=== PATIENT | male | born 1935 | race Caucasian/White ===

== ENCOUNTER 2016-10-23 13:52 | Emergency (ER) | payer MEDICARE ==
[2016-10-23] MEDS: 0.9 % SODIUM CHLORIDE 1000ML 1,000 ML IV PRN (14:18)
[2016-10-23] MEDS: ASPIRIN 81 MG CHEWABLE TABLET PO ONE (14:19)
--- NOTE | 2016-10-23 14:19 | Emergency Department Record ---
History of Present Illness - General Chief Complaint: Chest Pain Stated Complaint: CHEST PAIN Time Seen by Provider: 10/23/16 13:53 Source: Patient, RN notes reviewed Mode of Arrival: Wheelchair - History of Present Illness Initial Comments: patient felt a buzzing sensation in his chest while walking on the treadmil at the [facility] this AM. Lasted 60 minutes. Than when visiting his at the [facility] he got up and felt dizzy. 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 Onset/Timin -: Hour(s) Onset: During exertion Pain Location: Left chest Pain Radiation: None Severity: Mild Quality: Other Treatments Prior to Arrival: None - Related Data Home Medications Medication Instructions Recorded Confirmed Last Taken Terazosin HCl 2 mg PO DAILY 12/21/14 10/23/16 10/23/16 Levothyroxine Sodium [Synthroid] 50 mg PO DAILY #90 06/13/16 10/23/16 10/23/16 Duloxetine HCl [Cymbalta] 60 mg PO BID cap 10/02/16 10/23/16 10/23/16 Loratadine [Claritin] 10 mg PO DAILY cap 10/02/16 10/23/16 10/23/16 Aspirin [Adult Low Dose Aspirin EC] 81 mg PO DAILY 10/23/16 10/23/16 10/23/16 Cholecalciferol (Vitamin D3) 2,000 units PO DAILY 10/23/16 10/23/16 10/23/16 [Vitamin D3] Finasteride [Proscar] 5 mg PO DAILY 10/23/16 10/23/16 10/23/16 Meclizine HCl [Antivert] 25 mg PO BID 10/23/16 10/23/16 10/23/16 Allergies Allergy/AdvReac Type Severity Reaction Status Date / Time citric acid Allergy Severe HIVES Verified 10/23/16 13:54 ibuprofen [From Motrin] Allergy Severe HIVES Verified 10/23/16 13:54 naproxen sodium [From Aleve] Allergy Severe HIVES Verified 10/23/16 13:54 NSAIDS (Non-Steroidal Allergy Severe mouth sores Verified 10/23/16 13:54 Anti-Inflamma Travel Screening - Travel/Exposure Within Last 30 Days Have you traveled within the last 30 days?: No - Travel/Exposure Within Last Year Have you traveled outside the [place] in the last year?: No - Additonal Travel Details Have you been exposed to anyone with a communicable illness?: No - Travel Symptoms Symptom Screening: None Review of Systems Reviewed: No additional complaints except as noted below Constitutional: Reports: As per HPI. Denies: Chills, Fever, Malaise, Night sweats, Weakness, Weight change Eyes: Reports: As per HPI. Denies: Eye discharge, Eye pain, Photophobia, Vision change ENT: Reports: As per HPI. Denies: Congestion, Dental pain, Ear pain, Epistaxis , Hearing loss, Throat pain Respiratory: Reports: As per HPI. Denies: Cough, Dyspnea, Hemoptysis, Stridor, Wheezes Cardiovascular: Reports: As per HPI, Chest pain (vibrator sensation in his chest today while walking on the treadmil this am adn lasted 15 minutes ). Denies: Arrhythmia, Dyspnea on exertion, Edema, Murmurs, Orthopnea, Palpitations , Paroxysmal nocturnal dyspnea, Rheumatic Fever, Syncope Endocrine: Reports: As per HPI. Denies: Fatigue, Heat or cold intolerance, Polydipsia, Polyuria Gastrointestinal: Reports: As per HPI. Denies: Abdominal pain, Constipation, Diarrhea, Hematemesis, Hematochezia, Melena, Nausea, Vomiting Genitourinary: Reports: As per HPI. Denies: Dysuria, Frequency, Hematuria, Incontinence, Retention, Testicular pain, Testicular mass, Urgency Musculoskeletal: Reports: As per HPI. Denies: Arthralgia, Back pain, Gout, Joint swelling, Myalgia, Neck pain Skin: Reports: As per HPI. Denies: Bruising, Change in color, Change in hair/ nails, Lesions, Pruritus, Rash Neurological: Reports: As per HPI. Denies: Abnormal gait, Confusion, Headache, Numbness, Paresthesias, Seizure, Tingling, Tremors, Vertigo, Weakness Psychiatric: Reports: As per HPI. Denies: Anxiety, Auditory hallucinations, Depression, Homicidal thoughts, Suicidal thoughts, Visual hallucinations Hematological/Lymphatic: Reports: As per HPI. Denies: Anemia, Blood Clots, Easy bleeding, Easy bruising, Swollen glands Past Medical History - SOCIAL HISTORY Smoking Status: Former smoker Alcohol Use: Occassional Drug Use: None - RESPIRATORY Hx Respiratory Disorders: Yes Hx Pulmonary Embolism: Yes - CARDIOVASCULAR Hx Cardio Disorders: Yes Comment:: high cholesterol - NEURO Hx Neuro Disorders: Yes Hx Dizziness: Yes - GI Hx GI Disorders: No - Hx Genitourinary Disorders: Yes Hx Prostate Problems: Yes Comment:: BPH - ENDOCRINE Hx Endocrine Disorders: Yes Hx Thyroid Disease: Yes - MUSCULOSKELETAL Hx Musculoskeletal Disorders: No - PSYCH Hx Psych Problems: No - HEMATOLOGY/ONCOLOGY Hx Hematology/Oncology Disorders: No Family Medical History Any Significant Family History?: Yes Family Hx Comment (NOT TO BE USED IN PLACE OF ITEMS BELOW): Brother and 1 sister had brain tumor. Also 2 neices Hx Cancer: Brother/Sister Physical Exam - General General Appearance: Alert, Oriented x3, Cooperative, No acute distress - Head Head exam: Normal inspection - Eye Eye exam: Normal appearance, PERRL Pupils: Normal accommodation - ENT ENT exam: Normal exam, Mucous membranes moist, Normal external ear exam, Normal orophraynx, TM's normal bilaterally Ear exam: Normal external inspection. negative: External canal tenderness Nasal Exam: Normal inspection. negative: Discharge, Sinus tenderness Mouth exam: Normal external inspection, Tongue normal Teeth exam: Normal inspection. negative: Dental caries Throat exam: Normal inspection. negative: Tonsillar erythema, Tonsillar exudate - Neck Neck exam: Normal inspection, Full ROM. negative: Tenderness - Respiratory Respiratory exam: Normal lung sounds bilaterally. negative: Respiratory distress - Cardiovascular Cardiovascular Exam: Regular rate, Normal rhythm, Normal heart sounds - GI/Abdominal GI/Abdominal exam: Soft, Normal bowel sounds. negative: Tenderness - Rectal Rectal exam: Deferred - exam: Deferred - Extremities Extremities exam: Normal inspection, Full ROM, Normal capillary refill. negative: Tenderness - Back Back exam: Reports: Normal inspection, Full ROM. Denies: Muscle spasm, Rash noted, Tenderness - Neurological Neurological exam: Alert, Normal gait, Oriented X3, Reflexes normal - Psychiatric Psychiatric exam: Normal affect, Normal mood - Skin Skin exam: Dry, Intact, Normal color, Warm Course Vital Signs 10/23/16 14:05 Temperature 97.5 F L Pulse Rate 92 H Respiratory 18 Rate Blood Pressure 121/72 Pulse Ox [address] Meehan - Reevaluation(s) Reevaluation #1: Dr. Meehan here to evaluate patient. orthostatic hypotension from flomax. recommended stopping. follow up outpatient if second enzymes are neg. 10/23/16 16:08 Medical Decision Making - Data Complexity MDM Data: Labs Ordered and/or Reviewed, X-Ray Ordered and/or Reviewed (chest negative per JIMY), EKG Ordered and/or Reviewed (normal no acute changes) - Lab Data Result diagrams: 10/23/16 14:20 10/23/16 14:20 Disposition Clinical Impression: Orthostatic hypotension Chest pain Qualifiers: Chest pain type: unspecified Qualified Code(s): R07.9 - Chest pain, unspecified Disposition: Home, Self-Care Condition: (1) Good Instructions: Syncope (ED) Additional Instructions: stop flomax (.tamsulosin) drink more fluids follow up with Dr Harris in 5 days Forms: Patient Portal Access Time of Disposition: 18:15
[2016-10-23 14:26] LABS: BASO % 0.4 % (0-6); EOS % 1.2 % (0-6); GRAN % 79.9 % (47-80); HEMATOCRIT 39.6 % (42.0-52.0); HEMOGLOBIN 12.9 gm/dl (14.0-18.0); LYMPH % 13.1 % (16-45); MEAN CELL VOLUME 97.3 fl (81-97); MEAN CORPUSCULAR HGB CONC 32.6 g/dl (32-36); MEAN PLATELET VOLUME 9.7 fl (7.4-10.4); MONO % 5.4 % (0-9); PLATELET COUNT 198 K/uL (130-400); RED BLOOD COUNT 4.07 M/uL (4.40-5.70); RED CELL DISTRIBUTION WIDTH 14.4 % (11.5-14.5)
[2016-10-23 14:27] LABS: MEAN CORPUSCULAR HEMOGLOBIN 31.6 pg (27-33)
[2016-10-23 14:39] LABS: BLOOD UREA NITROGEN 19 mg/dL (9-20); CREATININE 0.8 mg/dL (0.66-1.25); EST GLOMERULAR FILTRATION RATE > 60 ml/min; GLUCOSE,RANDOM 156 mg/dL (70-110)
[2016-10-23 14:52] LABS: CKMB 1.1 ug/L (0-6)
[2016-10-23 14:56] LABS: TROPONIN I < 0.012 ng/mL (0.00-0.034)
[2016-10-23 17:49] LABS: CKMB 0.9 ug/L (0-6)
[2016-10-23 17:55] LABS: TROPONIN I < 0.012 ng/mL (0.00-0.034)
--- NOTE | 2016-10-24 15:44 | Medical Records Consult ---
DATE OF DICTATION: 10/23/16 DATE OF CONSULTATION: 10/23/16 Mr. Garay is an 81-year-old gentleman who was seen at [facility] for cardiac consultation. Mr. Garay presents to the Emergency Room after complaint of lightheadedness and buzzing sensation in his chest while walking on a treadmill. In general, he denies any significant angina, palpitations, TIA , syncope, or heart failure symptoms. He has no previous history of coronary artery disease. Mr. Garay states he routinely exercises and swims without any significant complaints. He does have significant prostate hypertrophy and is on multiple medications. He does take Meclizine for history of lightheadedness and dizziness upon standing. PAST MEDICAL HISTORY: Consistent for hypothyroidism, hyperlipidemia, benign prostate hyperplasia. PAST SURGICAL HISTORY: Nothing significant. MEDICATIONS: Currently include; Aspirin 81 mg daily. Cymbalta 60 mg b.i.d. Terazosin was recently discontinued. Atorvastatin 20 mg every h.s. Flomax 0.4 mg daily. Finasteride was recently initiated. Meclizine 25 mg prn. Claritin prn. Synthroid 50 mcg daily. ALLERGIES: IBUPROFEN; CAUSING HIVES. NON-STEROIDALS IN GENERAL. SOCIAL HISTORY: He currently lives independently. He lives in [place]. He was a remote smoker. PHYSICAL EXAM: VITAL SIGNS: He is afebrile. Vital signs are stable. LUNGS: Lungs are clear. CARDIAC EXAM: Normal. ABDOMEN: Soft. EXTREMITIES: Reveal no edema. LABORATORY EXAM: The white count is 8, hemoglobin 12.9, platelets 198,000. First troponin is negative. Creatinine is 0.8, glucose 156. IMPRESSION/PLAN: Mr. Garay appears to be stable from a cardiovascular standpoint. He has some lightheadedness, dizziness upon standing, which sounds orthostatic in nature. His blood pressure in the Emergency Room is low. He does take medications for his prostate that may cause orthostatic hypotension such as Flomax. My recommendations agree with the recent discontinuation of Terazosin. He may benefit from stopping Flomax and being placed on an alternative medication. His ECG, cardiac enzymes, and exam are within normal limits. At this time, no further testing is required. If his second troponin is negative, he can follow-up with his primary care physician. If he has any future symptoms concerning cardiac etiology, we are happy to see him in the office setting. Duarte Meehan M.D. Date & Time JOB NUMBER: [id number] MTDD
== END 2016-10-23 18:34 | disposition home or self-care (01) ==
LOC: ER 13:52
DX: I95.2 Hypotension due to drugs (principal); T44.6X5A Adverse effect of alpha-adrenoreceptor antagonists, initial encounter; R07.9 Chest pain, unspecified; R42 Dizziness and giddiness; Y92.838 Other recreation area as the place of occurrence of the external cause
CPT/HCPCS: 71020; 80048; 82553; 84484; 85025; 85730; 93005; 93010; 99284

== ENCOUNTER 2016-12-21 16:26 | Emergency (ER) | payer MEDICARE ==
--- NOTE | 2016-12-21 16:33 | Emergency Department Record ---
History of Present Illness - General Stated complaint: CATHETER PROBLEM Time Seen by Provider: 12/21/16 16:28 Source: Patient Mode of Arrival: Ambulatory Limitations: No limitations - History of Present Illness Initial comments: 81 yo male presents with leakage around his chandler catheter and very little going in the chandler leg bag. He denies recent surgery or instrumentation. He had the chandler placed for urinary incontinence Becky. The urine stopped going in the bag and leaked around starting yesterday. He denies fever or pain. No NVD. He is scheduled with Dr Fernández for surgery in about 2 weeks. Complaint: Other -: Days(s) (2) Location: Penis Radiation: None Severity: Mild Consistency: Constant Improves with: Other (working chandler) Worsens with: Other (small clots noted in chandler) Indwelling catheter Reports: Denies other symptoms - Related Data Home Medications Medication Instructions Recorded Confirmed Last Taken Terazosin HCl 2 mg PO DAILY 12/21/14 10/23/16 10/23/16 Levothyroxine Sodium [Synthroid] 50 mg PO DAILY #90 06/13/16 10/23/16 10/23/16 Duloxetine HCl [Cymbalta] 60 mg PO BID cap 10/02/16 10/23/16 10/23/16 Loratadine [Claritin] 10 mg PO DAILY cap 10/02/16 10/23/16 10/23/16 Aspirin [Adult Low Dose Aspirin EC] 81 mg PO DAILY 10/23/16 10/23/16 10/23/16 Cholecalciferol (Vitamin D3) 2,000 units PO DAILY 10/23/16 10/23/16 10/23/16 [Vitamin D3] Finasteride [Proscar] 5 mg PO DAILY 10/23/16 10/23/16 10/23/16 Meclizine HCl [Antivert] 25 mg PO BID 10/23/16 10/23/16 10/23/16 Previous Rx's Medication Instructions Recorded Cephalexin [Keflex] 500 mg PO TID #21 cap 12/21/16 Allergies Allergy/AdvReac Type Severity Reaction Status Date / Time citric acid Allergy Severe HIVES Verified 10/23/16 13:54 ibuprofen [From Motrin] Allergy Severe HIVES Verified 10/23/16 13:54 naproxen sodium [From Aleve] Allergy Severe HIVES Verified 10/23/16 13:54 NSAIDS (Non-Steroidal Allergy Severe mouth sores Verified 10/23/16 13:54 Anti-Inflamma Review of Systems Constitutional: Denies: Chills, Fever, Malaise Eyes: Denies: Eye discharge ENT: Denies: Congestion, Throat pain Respiratory: Denies: Cough Cardiovascular: Denies: Chest pain, Syncope Endocrine: Denies: Fatigue Gastrointestinal: Denies: Abdominal pain, Diarrhea, Nausea, Vomiting Genitourinary: Reports: Frequency, Hematuria, Incontinence. Denies: Retention Musculoskeletal: Denies: Arthralgia, Back pain, Neck pain Skin: Denies: Bruising, Change in color, Rash Neurological: Denies: Headache Psychiatric: Denies: Anxiety Hematological/Lymphatic: Denies: Blood Clots, Easy bleeding, Easy bruising, Swollen glands Past Medical History - SOCIAL HISTORY Smoking Status: Former smoker Drug Use: None - RESPIRATORY Hx Respiratory Disorders: Yes Hx Pulmonary Embolism: Yes - CARDIOVASCULAR Hx Cardio Disorders: Yes Comment:: high cholesterol - NEURO Hx Neuro Disorders: Yes Hx Dizziness: Yes - GI Hx GI Disorders: No - Hx Genitourinary Disorders: Yes Hx Prostate Problems: Yes Comment:: BPH - ENDOCRINE Hx Endocrine Disorders: Yes Hx Thyroid Disease: Yes - MUSCULOSKELETAL Hx Musculoskeletal Disorders: No - PSYCH Hx Psych Problems: No - HEMATOLOGY/ONCOLOGY Hx Hematology/Oncology Disorders: No Family Medical History Family Hx Comment (NOT TO BE USED IN PLACE OF ITEMS BELOW): Brother and 1 sister had brain tumor. Also 2 neices Hx Cancer: Brother/Sister Physical Exam - General General Appearance: Alert, Oriented x3, Cooperative, No acute distress Limitations: No limitations - Head Head exam: Normal inspection - Eye Eye exam: Normal appearance - ENT ENT exam: Normal exam Ear exam: Normal external inspection Nasal Exam: Normal inspection - Neck Neck exam: Normal inspection - Respiratory Respiratory exam: Normal lung sounds bilaterally. negative: Respiratory distress - Cardiovascular Cardiovascular Exam: Regular rate, Normal rhythm, Normal heart sounds - GI/Abdominal GI/Abdominal exam: Soft. negative: Tenderness - exam: Normal inspection, Other (debris and clot noted in the chandler). negative: Circumcision (normal foreskin position, no scricture. No paraphimosis , clean except leaking urine), Scrotal swelling, Testicular tenderness, Urethral discharge - Extremities Extremities exam: Normal inspection - Back Back exam: Denies: CVA tenderness (R), CVA tenderness (L) - Neurological Neurological exam: Alert, Normal gait, Oriented X3 - Psychiatric Psychiatric exam: Normal affect, Normal mood. negative: Agitated, Anxious - Skin Skin exam: Dry, Intact, Normal color, Warm Course - Reevaluation(s) Reevaluation #1: The chandler was exchanged with a new catheter. He had good urine flow. The foreskin was replaced back to it anatomic position. He is very comfortable. Moore yellow urine noted. He will be placed on Keflex given the removal and replacement. The leg bag was checked and was functioning properly with drainage. 12/21/16 16:46 12/21/16 17:22 Disposition Disposition: Discharge Clinical Impression: Chandler catheter problem Qualifiers: Encounter type: initial encounter Qualified Code(s): T83.9XXA - Unspecified complication of genitourinary prosthetic device, implant and graft, initial encounter Disposition: Home, Self-Care Condition: (1) Good Instructions: Chandler Catheter Placement and Care (ED) Additional Instructions: Return to the ER if you have fever, pain, leakage or no output from the chandler Follow up with Dr Mckeon as scheduled Keflex 3 times daily. Prescriptions: Cephalexin [Keflex] 500 mg PO TID #21 cap Forms: Patient Portal Access Time of Disposition: 16:48
[2016-12-21] MEDS ORDERED: CEPHALEXIN 500 MG CAPSULE PO STA (16:45)
== END 2016-12-21 17:12 | disposition home or self-care (01) ==
LOC: ER 16:26
DX: T83.038A Leakage of other urinary catheter, initial encounter (principal); Y84.6 Urinary catheterization as the cause of abnormal reaction of the patient, or of later complication, without mention of misadventure at the time of the procedure
CPT/HCPCS: 99283

== ENCOUNTER 2017-06-27 09:03 | Emergency (ER) | payer MEDICARE ==
--- NOTE | 2017-06-27 09:27 | Emergency Department Record ---
History of Present Illness - General Chief Complaint: Chest Pain Stated Complaint: CHEST PAIN Time Seen by Provider: 06/27/17 09:13 Source: Patient Mode of Arrival: Ambulatory Limitations: No limitations - History of Present Illness Initial Comments: The patient is here due to a one week hx of L sided sharp CP only with deep breathing. He denies any SOB, MARY, sweating, nausea or any pain when breathing normally. The patient also denies any CP with exertion, leg pain, cough, fever, or any fall or trauma. The patient had a hx of a PE 30 years ago so he initially went over to the but was sent to the ER to R/O PE. It seems 30 years ago he was on a long car ride and developed a DVT which led to the PE. He has had no problems since. MD Complaint: Chest pain Onset/Timin -: Week(s) Pain Location: Left chest Pain Radiation: None Improves With: Nothing Worsens With: Inspiration - Related Data Allergies Allergy/AdvReac Type Severity Reaction Status Date / Time citric acid Allergy Severe HIVES Verified 06/27/17 09:31 ibuprofen [From Motrin] Allergy Severe HIVES Verified 06/27/17 09:31 naproxen sodium [From Aleve] Allergy Severe HIVES Verified 06/27/17 09:31 NSAIDS (Non-Steroidal Allergy Severe mouth sores Verified 06/27/17 09:31 Anti-Inflamma Travel Screening - Travel/Exposure Within Last 30 Days Have you traveled within the last 30 days?: No - Travel/Exposure Within Last Year Have you traveled outside the [place] in the last year?: No - Additonal Travel Details Have you been exposed to anyone with a communicable illness?: No - Travel Symptoms Symptom Screening: None Review of Systems Constitutional: Denies: Chills, Fever Eyes: Denies: Eye discharge ENT: Denies: Congestion Respiratory: Denies: Cough, Dyspnea Past Medical History - SOCIAL HISTORY Smoking Status: Former smoker Alcohol Use: None Drug Use: None - RESPIRATORY Hx Respiratory Disorders: Yes Hx Pulmonary Embolism: Yes - CARDIOVASCULAR Hx Cardio Disorders: Yes Comment:: high cholesterol - NEURO Hx Neuro Disorders: Yes Hx Dizziness: Yes - GI Hx GI Disorders: No - Hx Genitourinary Disorders: Yes Hx Prostate Problems: Yes Comment:: BPH - ENDOCRINE Hx Endocrine Disorders: Yes Hx Thyroid Disease: Yes - MUSCULOSKELETAL Hx Musculoskeletal Disorders: No - PSYCH Hx Psych Problems: No - HEMATOLOGY/ONCOLOGY Hx Hematology/Oncology Disorders: No Family Medical History Any Significant Family History?: Yes Family Hx Comment (NOT TO BE USED IN PLACE OF ITEMS BELOW): Brother and 1 sister had brain tumor. Also 2 neices Hx Cancer: Brother/Sister Physical Exam - General General Appearance: Alert, Oriented x3, Cooperative, No acute distress - Head Head exam: Atraumatic, Normocephalic, Normal inspection - Eye Eye exam: Normal appearance, PERRL - Neck Neck exam: Normal inspection, Full ROM. negative: Tenderness - Respiratory Respiratory exam: Normal lung sounds bilaterally, Chest wall tenderness (The pain is 100% reproducible with palpation of the L mid ribs in the mid axillary line.). negative: Respiratory distress - Cardiovascular Cardiovascular Exam: Regular rate, Normal rhythm, Normal heart sounds - GI/Abdominal GI/Abdominal exam: Soft, Normal bowel sounds. negative: Tenderness - Extremities Extremities exam: Normal inspection, Full ROM, Normal capillary refill. negative: Calf tenderness, Pedal edema, Tenderness Image of Full Body: 1 - Area of pain and tenderness. - Neurological Neurological exam: Alert, Normal gait. negative: Abnormal gait, Motor sensory deficit Course Vital Signs 06/27/17 09:07 Temperature 97.5 F L Pulse Rate 73 Respiratory 16 Rate Blood Pressure 115/67 Pulse Ox 97 - Reevaluation(s) Reevaluation #1: The patient is doing very well at this time. He presently has no risk factors for a PE and no SOB or MARY. His EKG is normal and his pain is exquisitely 100% reproducible to palpation over the L rib area. The patient's lab work is normal also and his D-dimer is neg when taking into account his age adjusted D-Dimer normal level. Since the patient clearly has reproducible pain and is very stable we will discharge him on Tylenol. 06/27/17 10:29 Medical Decision Making - Data Complexity MDM Data: Labs Ordered and/or Reviewed, X-Ray Ordered and/or Reviewed, EKG Ordered and/or Reviewed - Lab Data Result diagrams: 06/27/17 09:27 06/27/17 09:27 - EKG Data -: EKG Interpreted by Me EKG: No Acute Changes, Normal EKG, Unchanged From Previous - Radiology Data Radiology results: Report reviewed (CXR: Neg. L Ribs: Neg.) Disposition Disposition: Discharge Clinical Impression: Rib contusion Qualifiers: Encounter type: initial encounter Laterality: left Qualified Code(s): S20.212A - Contusion of left front wall of thorax, initial encounter Disposition: Home, Self-Care Condition: (2) Stable Instructions: Rib Contusion (ED) Additional Instructions: Please take Tylenol for pain and see your PCP next week to go over your lab results and anemia. Please return to the ER for any problems. Forms: Patient Portal Access Time of Disposition: 10:33 Quality - Quality Measures Quality Measures: N/A - Blood Pressure Screening View Details: Yes Does Patient Have Any of the Following: No Blood Pressure Classification: Normal BP Reading Systolic Measurement: 118 Diastolic Measurement: 71 Screening for High Blood Pressure: < Normal BP, F/U Not Required > [[id number]]
[2017-06-27] MEDS ORDERED: ACETAMINOPHEN 325 MG TAB PO ONE (09:30)
[2017-06-27 09:38] LABS: BASO % 0.3 % (0-6); EOS % 6.1 % (0-6); GRAN % 62.4 % (47-80); HEMATOCRIT 36.1 % (42.0-52.0); HEMOGLOBIN 11.9 gm/dl (14.0-18.0); LYMPH % 15.3 % (16-45); MEAN PLATELET VOLUME 8.8 fl (7.4-10.4); MONO % 15.9 % (0-9); PLATELET COUNT 183 K/uL (130-400); RED BLOOD COUNT 3.72 M/uL (4.40-5.70); RED CELL DISTRIBUTION WIDTH 14.8 % (11.5-14.5); WHITE BLOOD COUNT W/O DIFF 6.7 K/uL (4.2-12.2)
[2017-06-27 09:40] LABS: MEAN CORPUSCULAR HEMOGLOBIN 31.9 pg (27-33)
[2017-06-27 09:48] LABS: BLOOD UREA NITROGEN 25 mg/dL (8-23); CREATININE 0.8 mg/dL (0.7-1.2); EST GLOMERULAR FILTRATION RATE > 60 mL/min; INR 0.93; PARTIAL THROMBOPLASTIN TIME 26.4 SECONDS (24.5-39.1)
[2017-06-27 09:51] LABS: GLUCOSE,RANDOM 94 mg/dL (74-109)
[2017-06-27 09:54] LABS: CREATINE PHOSPHOKINASE 35 U/L (39-308)
--- NOTE | 2017-06-27 14:41 | RADIOLOGY REPORT ---
EXAM: CHEST, TWO VIEWS HISTORY: LEFT MID RIB PAIN, POSSIBLE INJURY FROM CRAWLING. TECHNIQUE: Upright PA and lateral views of the chest were obtained. Comparison: Two view chest radiographic examination dated 10/23/16. FINDINGS: The frontal view is obtained with the patient in a left anterior oblique position. The heart is not enlarged and the pulmonary vasculature is nondilated. No confluent air space opacity is seen nor is there costophrenic angle blunting or pneumothorax. There are degenerative change of the visualized spine. No pulmonary venous hypertension is seen. The thoracic aorta is mildly tortuous and atherosclerotic. IMPRESSION: NO EVIDENCE OF ACUTE CARDIOPULMONARY DISEASE WITHOUT SIGNIFICANT CHANGE SINCE 10/23/16. JOB NUMBER: [id number] MTDD
--- NOTE | 2017-06-27 14:44 | RADIOLOGY REPORT ---
EXAM: LEFT RIBS, TWO VIEWS HISTORY: LEFT MID RIB PAIN. TECHNIQUE: AP and oblique views of the left ribs are obtained. Comparison: Same day two view chest radiographic examination. FINDINGS: Diffuse osteopenia limits evaluation. No definite acute left rib fracture. No lytic or blastic bone lesion is seen. There are degenerative changes of the visualized spine and shoulder girdles. IMPRESSION: 1. NO ACUTE RIB FRACTURE IDENTIFIED THOUGH EVALUATION IS SOMEWHAT LIMITED BY OSTEOPENIA. 2. DEGENERATIVE CHANGES SCATTERED THROUGHOUT THE VISUALIZED SPINE. JOB NUMBER: [id number] [facility]
== END 2017-06-27 10:40 | disposition home or self-care (01) ==
LOC: ER 09:03
DX: S20.212A Contusion of left front wall of thorax, initial encounter (principal); R07.81 Pleurodynia; X58.XXXA Exposure to other specified factors, initial encounter; Z86.711 Personal history of pulmonary embolism; Z87.891 Personal history of nicotine dependence
CPT/HCPCS: 71020; 80048; 82550; 82553; 84484; 85025; 85379; 85610; 85730; 93005; 93010; 99284

== ENCOUNTER 2018-05-02 15:39 | Emergency (ER) | payer MEDICARE ==
--- NOTE | 2018-05-02 16:05 | Emergency Department Record ---
History of Present Illness - General Chief complaint: Flank Pain Stated complaint: PAIN ON RT SIDE Time Seen by Provider: 05/02/18 15:52 Source: Patient, RN notes reviewed Mode of Arrival: Ambulatory - History of Present Illness Initial comments: patient states he has right sided flank pain. and he fell on the floor today . the pain started 9 am today and he cut his grass yesterday walking [employer]. pain is reproducible on palpation lower lateral rib cage Onset/Timin -: Hour(s) Location: Right flank Radiation: R flank Severity: Moderate Severity scale (1-10): 9 Improves with: None Worsens with: None - Related Data Sexually active: No Home Medications Medication Instructions Recorded Confirmed Last Taken Docusate Sodium [Colace] 100 mg PO DAILY 05/02/18 05/02/18 05/02/18 Loratadine [Claritin] 10 mg PO DAILY 05/02/18 05/02/18 Unknown Montelukast Sodium [Singulair] 10 mg PO QHS 05/02/18 05/02/18 05/01/18 Prednisone 5 mg PO DAILY 05/02/18 05/02/18 05/02/18 Tamsulosin HCl [Flomax] 0.4 mg PO DAILY 05/02/18 05/02/18 05/02/18 Previous Rx's Medication Instructions Recorded Ciprofloxacin HCl [Cipro] 500 mg PO Q12HR #20 tablet 05/02/18 Allergies Allergy/AdvReac Type Severity Reaction Status Date / Time citric acid Allergy Severe HIVES Unverified 04/02/18 12:38 ibuprofen [From Motrin] Allergy Severe HIVES Unverified 04/02/18 12:38 naproxen sodium [From Aleve] Allergy Severe HIVES Unverified 04/02/18 12:38 NSAIDS (Non-Steroidal Allergy Severe mouth sores Unverified 04/02/18 12:38 Anti-Inflamma Travel Screening - Travel/Exposure Within Last 30 Days Have you traveled within the last 30 days?: No - Travel/Exposure Within Last Year Have you traveled outside the [place] in the last year?: No - Additonal Travel Details Have you been exposed to anyone with a communicable illness?: No - Travel Symptoms Symptom Screening: None Review of Systems Reviewed: No additional complaints except as noted below Constitutional: Reports: As per HPI. Denies: Chills, Fever, Malaise, Night sweats, Weakness, Weight change Eyes: Reports: As per HPI. Denies: Eye discharge, Eye pain, Photophobia, Vision change ENT: Reports: As per HPI. Denies: Congestion, Dental pain, Ear pain, Epistaxis , Hearing loss, Throat pain Respiratory: Reports: As per HPI. Denies: Cough, Dyspnea, Hemoptysis, Stridor, Wheezes Cardiovascular: Reports: As per HPI. Denies: Arrhythmia, Chest pain, Dyspnea on exertion, Edema, Murmurs, Orthopnea, Palpitations, Paroxysmal nocturnal dyspnea, Rheumatic Fever, Syncope Endocrine: Reports: As per HPI. Denies: Fatigue, Heat or cold intolerance, Polydipsia, Polyuria Gastrointestinal: Reports: As per HPI, Other (right flank pain lower ribs). Denies: Abdominal pain, Constipation, Diarrhea, Hematemesis, Hematochezia, Melena, Nausea, Vomiting Genitourinary: Reports: As per HPI. Denies: Dysuria, Frequency, Hematuria, Incontinence, Retention, Testicular pain, Testicular mass, Urgency Musculoskeletal: Reports: As per HPI. Denies: Arthralgia, Back pain, Gout, Joint swelling, Myalgia, Neck pain Skin: Reports: As per HPI. Denies: Bruising, Change in color, Change in hair/ nails, Lesions, Pruritus, Rash Neurological: Reports: As per HPI. Denies: Abnormal gait, Confusion, Headache, Numbness, Paresthesias, Seizure, Tingling, Tremors, Vertigo, Weakness Psychiatric: Reports: As per HPI. Denies: Anxiety, Auditory hallucinations, Depression, Homicidal thoughts, Suicidal thoughts, Visual hallucinations Hematological/Lymphatic: Reports: As per HPI. Denies: Anemia, Blood Clots, Easy bleeding, Easy bruising, Swollen glands Past Medical History - SOCIAL HISTORY Smoking Status: Former smoker Alcohol Use: Occasional Drug Use: None - RESPIRATORY Hx Respiratory Disorders: Yes Hx Pulmonary Embolism: Yes - CARDIOVASCULAR Hx Cardio Disorders: Yes Comment:: high cholesterol - NEURO Hx Neuro Disorders: Yes Hx Dizziness: Yes - GI Hx GI Disorders: No - Hx Genitourinary Disorders: Yes Hx Prostate Problems: Yes Comment:: BPH - ENDOCRINE Hx Endocrine Disorders: Yes Hx Thyroid Disease: Yes - MUSCULOSKELETAL Hx Musculoskeletal Disorders: No - PSYCH Hx Psych Problems: No - HEMATOLOGY/ONCOLOGY Hx Hematology/Oncology Disorders: No Family Medical History Any Significant Family History?: No Family Hx Comment (NOT TO BE USED IN PLACE OF ITEMS BELOW): Brother and 1 sister had brain tumor. Also 2 neices Hx Cancer: Brother/Sister Physical Exam - General General Appearance: Alert, Oriented x3, Cooperative, Moderate distress - Head Head exam: Normal inspection - Eye Eye exam: Normal appearance, PERRL Pupils: Normal accommodation - ENT ENT exam: Normal exam, Mucous membranes moist, Normal external ear exam, Normal orophraynx, TM's normal bilaterally Ear exam: Normal external inspection. negative: External canal tenderness Nasal Exam: Normal inspection. negative: Discharge, Sinus tenderness Mouth exam: Normal external inspection, Tongue normal Teeth exam: Normal inspection. negative: Dental caries Throat exam: Normal inspection. negative: Tonsillar erythema, Tonsillar exudate - Neck Neck exam: Normal inspection, Full ROM. negative: Tenderness - Respiratory Respiratory exam: Normal lung sounds bilaterally. negative: Respiratory distress - Cardiovascular Cardiovascular Exam: Regular rate, Normal rhythm, Normal heart sounds - GI/Abdominal GI/Abdominal exam: Soft, Normal bowel sounds, Tenderness (pain reproducible lower ribs right side ) - Rectal Rectal exam: Deferred - exam: Deferred - Extremities Extremities exam: Normal inspection, Full ROM, Normal capillary refill. negative: Tenderness - Back Back exam: Reports: Normal inspection, Full ROM. Denies: Muscle spasm, Rash noted, Tenderness - Neurological Neurological exam: Alert, Normal gait, Oriented X3, Reflexes normal - Psychiatric Psychiatric exam: Normal affect, Normal mood - Skin Skin exam: Dry, Intact, Normal color, Warm Course Vital Signs 05/02/18 15:42 Temperature 97.6 F Pulse Rate 81 Respiratory 17 Rate Blood Pressure 125/69 Pulse Ox 99 - Reevaluation(s) Reevaluation #1: 05/02/18 17:52 discussed case with pateint and and informed them they need to see Family for referral to a vascualr surgeon because of incidental large AAA. Also discuseed this with his daughter Leda Holly who is a nurse in [place] and she told me she would get him in to see Dr. Harris friday or . Medical Decision Making - Data Complexity MDM Data: X-Ray Ordered and/or Reviewed (non obstructing kidney stones, incidental AAA 5.5cm by 5.3 cm by 7.7cm0 ) - Lab Data Result diagrams: 05/02/18 16:10 05/02/18 16:10 Disposition Clinical Impression: AAA (abdominal aortic aneurysm) without rupture Lumbar strain Qualifiers: Encounter type: initial encounter Qualified Code(s): S39.012A - Strain of muscle, fascia and tendon of lower back, initial encounter UTI (urinary tract infection) Qualifiers: Urinary tract infection type: acute cystitis Hematuria presence: without hematuria Qualified Code(s): N30.00 - Acute cystitis without hematuria Disposition: Home, Self-Care Condition: (1) Good Instructions: Low Back Strain (ED) Additional Instructions: follow up with Dr. Harris on friday tylenol for pain three times a day Prescriptions: Ciprofloxacin HCl [Cipro] 500 mg PO Q12HR #20 tablet Forms: Patient Portal Access Time of Disposition: 17:56 Quality - Quality Measures Quality Measures: N/A - Blood Pressure Screening Does Patient Have Any of the Following: No Blood Pressure Classification: Pre-Hypertensive BP Reading Systolic Measurement: 125 Diastolic Measurement: 69 Screening for High Blood Pressure: < Pre-Hypertensive BP, F/U Documented > [ [id number]] Pre-Hypertensive Follow-up Interventions: Referral to alternative/primary care provider.
[2018-05-02 16:18] LABS: BASO % 0.4 % (0-6); EOS % 5.5 % (0-6); GRAN % 64.8 % (47-80); HEMOGLOBIN 11.7 gm/dl (14.0-18.0); LYMPH % 18.7 % (16-45); MEAN CELL VOLUME 101.1 fl (81-97); MEAN CORPUSCULAR HGB CONC 32.5 g/dl (32-36); MEAN PLATELET VOLUME 8.6 fl (7.4-10.4); MONO % 10.6 % (0-9); PLATELET COUNT 214 K/uL (130-400); RED BLOOD COUNT 3.56 M/uL (4.40-5.70); RED CELL DISTRIBUTION WIDTH 13.6 % (11.5-14.5); URINE APPEARANCE CLEAR; URINE BILIRUBIN NEGATIVE (NEGATIVE); URINE BLOOD NEGATIVE (NEGATIVE); URINE COLOR YELLOW; URINE GLUCOSE (UA) NEGATIVE (NEGATIVE); URINE KETONE TRACE (NEGATIVE); URINE LEUKOCYTE ESTERASE LARGE (NEGATIVE); URINE NITRITE POSITIVE (NEGATIVE); URINE PROTEIN NEGATIVE (NEGATIVE); URINE UROBILINOGEN 0.2 E.U./dL (0.20 - 1.00)
[2018-05-02 16:23] LABS: MEAN CORPUSCULAR HEMOGLOBIN 32.8 pg (27-33)
[2018-05-02 16:28] LABS: BLOOD UREA NITROGEN 19 mg/dL (8-23); CREATININE 0.8 mg/dL (0.7-1.2); EST GLOMERULAR FILTRATION RATE > 60 mL/min; TOTAL PROTEIN 6.7 g/dL (6.6-8.7)
[2018-05-02 16:30] LABS: GLUCOSE,RANDOM 110 mg/dL (74-109)
[2018-05-02 16:32] LABS: URINE BACTERIA 1+; URINE EPITHELIAL CELLS NONE SEEN (FEW); URINE RBC NONE SEEN (NONE SEEN); URINE WBC 16 - 20 (0-2/hpf)
[2018-05-02 16:33] LABS: ALKALINE PHOSPHATASE 66 U/L (40-129); ALT/SGPT 25 U/L (<41); AST/SGOT 26 U/L (10.0-50.0); LIPASE 56 U/L (13-60)
[2018-05-02 16:34] LABS: BILIRUBIN,DIRECT < 0.2 mg/dL (0-0.3)
[2018-05-02] MEDS: 0.9 % SODIUM CHLORIDE 1000ML 1,000 ML IV PRN (16:41)
[2018-05-02] MEDS: CIPROFLOXACIN HCL 500 MG TABLET PO ONE ×2 (18:02→18:06)
--- NOTE | 2018-05-05 12:37 | CT SCAN REPORT ---
EXAM: CT OF THE ABDOMEN AND PELVIS WITHOUT CONTRAST HISTORY: RIGHT FLANK PAIN, PATIENT FELL TODAY. TECHNIQUE: Axial CT scan of the abdomen and pelvis was performed without oral or IV contrast at referring physician's request. Comparison: None. FINDINGS: No calcified gallstones are seen within the gallbladder. No intrarenal calculi seen on the right. A couple are seen on the left consistent with currently nonobstructing intrarenal calculi on the left. There is no hydronephrosis or hydroureter on either side with no ureteral calculus seen on either side and no bladder calculus evident. The prostate appears enlarged measuring about 5.3 cm in transverse x 3.7 cm in AP diameter. Several prostate calcifications. Correlation with physical exam and serum PSA suggested. The enlarged prostate does extend up into floor of the bladder. There is an infrarenal abdominal aortic aneurysm measuring about 5.3 cm in AP x 5.5 cm in transverse diameters and extending for a length of about 7.7 cm in craniocaudal dimension, extending down to the aortic bifurcation. There is some dilatation of both common iliac arteries as well with the right measuring up to 2.8 cm and the left 2 cm. There are bilateral inguinal hernias containing adipose tissue, but no bowel, slightly larger on the left than the right. Evaluation of the bowel and viscera is quite limited without oral or IV contrast. Given this limitation, no definite hepatic, splenic, adrenal, pancreatic, or renal mass identified. There is mild diverticulosis in the left side of the colon with a few in the right side of the colon as well, but no definite diverticulitis evident. There is a prominent amount of stool throughout the colon raising the possibility of constipation. I believe the appendix is identified as a normal caliber structure containing air with no appendicitis evident. No free intraperitoneal air or free intraperitoneal fluid evident. Prominent facet joint arthropathy in the lower lumbar spine. Fusion along the anterior aspect of the sacroiliac joints. Multilevel degenerative disk disease in the lumbar spine and prominent spurring in the lower thoracic spine. Borderline central stenosis at the L2-L3 interspace. IMPRESSION: 1. A COUPLE SMALL NONOBSTRUCTING CALCULI IN THE LEFT KIDNEY. NONE SEEN IN THE RIGHT. NO HYDRONEPHROSIS OR URETERAL CALCULUS ON EITHER SIDE. 2. INFRARENAL ABDOMINAL AORTIC ANEURYSM WITH MEASUREMENTS ABOVE. THERE IS SOME ANEURYSMAL DILATATION OF BOTH COMMON ILIAC ARTERIES WELL. 3. ENLARGED PROSTATE EXTENDING UP INTO THE FLOOR OF THE BLADDER. 4. MODERATE DIVERTICULOSIS LEFT SIDE OF THE COLON AND MILD SCATTERED DIVERTICULOSIS RIGHT SIDE OF THE COLON. NO DIVERTICULITIS EVIDENT AND NO APPENDICITIS SEEN. 5. MULTILEVEL DEGENERATIVE CHANGE IN THE SPINE. JOB NUMBER: [id number] MTDD
== END 2018-05-02 18:47 | disposition home or self-care (01) ==
LOC: ER 15:39
DX: S39.012A Strain of muscle, fascia and tendon of lower back, initial encounter (principal); N30.00 Acute cystitis without hematuria; I71.4 Abdominal aortic aneurysm, without rupture; Z87.891 Personal history of nicotine dependence; W19.XXXA Unspecified fall, initial encounter
CPT/HCPCS: 74176; 80048; 80076; 81001; 83690; 85025; 99284